=== PATIENT | female | born 1975 | race Two or more races ===

== ENCOUNTER → 2019-08-11 | Outpatient (CLI) | payer OTHER ==
[~2019-08-11] VITALS: Ht 157.5 cm; Wt 67.1 kg
[~2019-08-11] MED LIST: PEPCID40 MG PO
== END | disposition home or self-care (01) ==
LOC: OFIC 805 08:55
DX: E04.2 Nontoxic multinodular goiter (principal); J31.0 Chronic rhinitis; J37.0 Chronic laryngitis; K21.9 Gastro-esophageal reflux disease without esophagitis

== ENCOUNTER 2019-08-16 09:29 | Outpatient (CLI) | payer OTHER | END 2019-08-16 10:22 | disposition home or self-care (01) | LOC: SONOGRAMA 09:29 | DX: E04.1 Nontoxic single thyroid nodule (principal) ==